=== PATIENT | female | born 1960 | race Caucasian/White ===

== ENCOUNTER 2020-09-10 17:39 | Outpatient (CLI) | payer OTHER, SELFPAY ==
--- NOTE | ~2020-09-10 | MM_ITS ---
EXAMINATION: MM screening [facility] BI w cesar HISTORY: Screening mammogram TECHNIQUE: Craniocaudal and mediolateral oblique 3-D tomosynthesis images were obtained and synthetic 2-D images were generated. CAD analysis was submitted and interpreted. COMPARISON: 06/16/2019, 04/25/2018, 09/18/2016 BREAST PARENCHYMAL COMPOSITION: There are scattered areas of fibroglandular density. FINDINGS: RIGHT BREAST: An asymmetry is present in the middle third of the upper breast 4.5 cm from the nipple on the mediolateral oblique view. LEFT BREAST: There is no evidence of suspicious mass, calcification, or architectural distortion to s uggest malignancy. There has been no significant interval change. IMPRESSION: 1. Right breast asymmetry on the mediolateral oblique view. 2. Additional mammographic views and possible breast ultrasound are recommended. BI-RADS Category 0: Incomplete: Needs additional imaging evaluation. Reviewed, dictated and finalized at location A. IMPRESSION: 1. Right breast asymmetry on the mediolateral oblique view. 2. Additional mammographic views and possible breast ultrasound are recommended . BI-RADS Category 0: Incomplete: Needs additional imaging evaluation.
== END 2020-09-10 17:40 | disposition home or self-care (01) ==
LOC: ANHIMG 17:42
PROVIDERS: PCP Family Medicine; Visit Provider Obstetrics & Gynecology
DX: Z12.31 Encounter for screening mammogram for malignant neoplasm of breast (principal); R92.8 Other abnormal and inconclusive findings on diagnostic imaging of breast
CPT/HCPCS: 77063; 77067

== ENCOUNTER 2020-10-04 11:53 | Outpatient (CLI) | payer OTHER, SELFPAY ==
--- NOTE | ~2020-10-04 | MM_ITS ---
EXAMINATION: MM diagnostic mammo unilat RT HISTORY: Right breast asymmetry on screening mammogram TECHNIQUE: Additional 3-D tomosynthesis images of the right breast were performed and synthetic 2-D i mages were generated. CAD analysis was submitted and interpreted. COMPARISON: 09/10/2020, 06/16/2019, 04/25/2018, 09/18/2016, 01/01/2015 FINDINGS: There is a return to baseline fibroglandular appearance in the right breast in the area que stioned on screening mammogram. No suspicious mass, calcification, or architectural distortion are id entified. IMPRESSION: 1. No mammographic evidence of malignancy. 2. Recommend routine screening mammography in one year. BI-RADS Category 1: Negative Reviewed, dictated and finalized at location A. BITS CURATOR
== END 2020-10-04 11:54 | disposition home or self-care (01) ==
PROVIDERS: PCP Family Medicine; Visit Provider Obstetrics & Gynecology
DX: R92.8 Other abnormal and inconclusive findings on diagnostic imaging of breast (principal)
CPT/HCPCS: 77065

== ENCOUNTER 2022-04-10 09:09 | Outpatient (CLI) | payer OTHER, SELFPAY ==
--- NOTE | ~2022-04-10 | MM_ITS ---
EXAMINATION: MM screening [facility] BI w cesar HISTORY: Screening mammogram TECHNIQUE: Craniocaudal and mediolateral oblique 3-D tomosynthesis images were obtained and synthetic 2-D images were generated. CAD analysis was submitted and interpreted. COMPARISON: 10/04/2020 diagnostic right mammogram 09/10/2020, 06/16/2019, 04/25/2018 bilateral screening mammogram examinations BREAST PARENCHYMAL COMPOSITION: There are scattered areas of fibroglandular density. FINDINGS: Possible architectural distortion in the upper outer left breast (MLO Tomosynthesis image 2 ). Diagnostic right mammogram and right breast ultrasound examination are recommended. Otherwise there is no evidence of suspicious mass, calcification, or architectural distortion to sugg est malignancy in either breast. There has been no other suspicious interval change. IMPRESSION: 1. Possible architectural distortion in upper outer right breast 2. Diagnostic right mammogram and right breast ultrasound examination are recommended. BI-RADS Category 0: Incomplete: Needs additional imaging evaluation. Reviewed, dictated and finalized at location A. IMPRESSION: 1. Possible architectural distortion in upper outer right breast 2. Diagnostic right mammogram and right breast ultrasound examination are recom mended. BI-RADS Category 0: Incomplete: Needs additional imaging evaluation.
== END 2022-04-10 09:10 | disposition home or self-care (01) ==
PROVIDERS: PCP Family Medicine; Visit Provider Obstetrics & Gynecology
DX: Z12.31 Encounter for screening mammogram for malignant neoplasm of breast (principal); R92.8 Other abnormal and inconclusive findings on diagnostic imaging of breast
CPT/HCPCS: 77063; 77067

== ENCOUNTER 2022-04-27 13:51 | Outpatient (CLI) | payer OTHER, SELFPAY ==
--- NOTE | ~2022-04-27 | MMUS_ITS ---
EXAMINATION: MM diagnostic [facility] RT w cesar, US breast RT limited HISTORY: Follow-up right breast asymmetry TECHNIQUE: Additional 3-D tomosynthesis images of the right breast were performed and synthetic 2-D i mages were generated. CAD analysis was submitted and interpreted. High resolution Limited right breas t ultrasound was performed. COMPARISON: Comparison to multiple prior studies sequentially, with oldest reviewed study dated 02/2016. BREAST PARENCHYMAL COMPOSITION: Breast composed of scattered areas of fibroglandular density FINDINGS: MAMMOGRAPHIC FINDINGS: No suspicious masses, calcifications or architectural distortion in the right breast to suggest tyesha mark. ULTRASOUND: Limited right breast ultrasound: Multiple heterogeneous echotexture without focal mass. IMPRESSION: 1. No evidence for malignancy in the right breast. 2. Routine yearly screening mammogram and regular clinical breast examination are recommended. BI-RADS Category 1: Negative Reviewed, dictated and finalized at location A. IMPRESSION: 1. No evidence for malignancy in the right breast. 2. Routine yearly screening mammogram and regular clinical breast examination a re recommended. BI-RADS Category 1: Negative
== END 2022-04-27 13:52 | disposition home or self-care (01) ==
PROVIDERS: PCP Family Medicine; Visit Provider Obstetrics & Gynecology
DX: R92.8 Other abnormal and inconclusive findings on diagnostic imaging of breast (principal)
CPT/HCPCS: 76642; 77061; 77065; G0279

== ENCOUNTER 2023-07-12 09:11 | Outpatient (CLI) | payer OTHER, SELFPAY ==
--- NOTE | ~2023-07-12 | MM_ITS ---
EXAMINATION: MM screening [facility] BI w cesar HISTORY: Screening mammogram TECHNIQUE: Craniocaudal and mediolateral oblique 3-D tomosynthesis images were obtained and synthetic 2-D images were generated. CAD analysis was submitted and interpreted. COMPARISON: 04/27/2022, 04/10/2022, 10/04/2020, 09/10/2020 BREAST PARENCHYMAL COMPOSITION: There are scattered areas of fibroglandular density. FINDINGS: No suspicious mass, calcification, or architectural distortion are identified in either holly ast to suggest malignancy. There has been no suspicious interval change. IMPRESSION: 1. No mammographic evidence of malignancy. 2. Recommend routine screening mammography in one year. BI-RADS Category 1: Negative Reviewed, dictated and finalized at location A.
== END 2023-07-12 09:12 | disposition home or self-care (01) ==
LOC: ANHIMG 09:13
PROVIDERS: PCP Family Medicine; Visit Provider Obstetrics & Gynecology
DX: Z12.31 Encounter for screening mammogram for malignant neoplasm of breast (principal)
CPT/HCPCS: 77063; 77067

== ENCOUNTER 2023-12-09 16:25 | Outpatient (CLI) | payer OTHER, SELFPAY ==
--- NOTE | ~2023-12-09 | XR_ITS ---
EXAMINATION: XR_[id number]_CR DATE: 12/09/2023 16:51 INDICATION: Knee pain. TECHNIQUE: 2 views of left knee were obtained. COMPARISON: None. FINDINGS: Bone alignment is normal. No fracture. There is mild tricompartmental osteoarthritis. No kn ee joint effusion. IMPRESSION: 1. Mild left knee osteoarthritis. Reviewed, dictated and finalized at location E. ING MACHINE OPERATOR
--- NOTE | ~2023-12-09 | XR_ITS ---
EXAMINATION: XR_[id number]_CR DATE: 12/09/2023 16:51 INDICATION: Right knee pain. TECHNIQUE: 2 views of right knee were obtained. COMPARISON: None. FINDINGS: Bone alignment is normal. No fracture. There is mild tricompartmental osteoarthritis. There is a small knee joint effusion. IMPRESSION: 1. Mild right knee osteoarthritis. 2. Small right knee joint effusion. Reviewed, dictated and finalized at location E. VIDEOGRAPHER
== END 2023-12-09 16:26 | disposition home or self-care (01) ==
LOC: ANHIMG 16:28
PROVIDERS: PCP Family Medicine; Visit Provider Physician Assistant
DX: M17.0 Bilateral primary osteoarthritis of knee (principal); M25.461 Effusion, right knee
CPT/HCPCS: 73560

== ENCOUNTER 2024-10-17 02:46 | Day surgery (SDC) | payer OTHER, SELFPAY ==
[2024-09-26 15:18] VITALS: BMI 34.2
[2024-10-17 08:49] VITALS: BP 133/70; PULSE 94; RESP 18; TEMP 36.1; O2SAT 98
[2024-10-17] MEDS: LACTATED RINGERS 1,000 ML 150 ML IV CONT (08:57)
--- NOTE | 2024-10-17 09:27 | P.PNAN_ITS ---
Anes - Initial Pre Proc Eval Procedure: Operation Date: 10/17/24 10:00 Proposed Procedures p Screening Colonoscopy - Blake Felix MD Date/Time: 10/17/24 09:27 Surgeon: Blake Felix MD Pre Op Diagnosis: Neoplasm screening Patient Data Age: 64 Gender: F Height: 1.7 m Weight: 96.4 kg Last Vital Signs Temp 36.1 C L 10/17/24 08:49 Pulse 94 10/17/24 08:49 Resp 18 10/17/24 08:49 BP 133/70 10/17/24 08:49 Pulse Ox 98 10/17/24 08:49 O2 Del Method Room Air 10/17/24 08:49 Allergies Allergy/AdvReac Type Severity Reaction Status Date / Time phenazopyridine Allergy Unknown Skin Verified 10/17/24 08:48 Reaction Home Medications Medication Instructions Recorded Confirmed Type calcium 600 mg (as 1 tablet PO DAILY 09/01/21 10/17/24 History carbonate)-vitamin D3 5 mcg (200 unit) tablet (Calcium 600 + D(3)) cholecalciferol (vitamin D3) 125 125 mcg PO WEEKLY 09/01/21 10/17/24 History mcg (5,000 unit) capsule glucosamine [id number] 2 tablet PO DAILY 09/01/21 10/17/24 History tanja 1,500 mg-400 unit-100 mg tablet (Osteo Bi-Flex (5-Loxin)) multivitamin (Daily Multi-Vitamin 1 tablet PO DAILY 09/01/21 10/17/24 History tablet) estradiol 0.01% (0.1 mg/gram) 1 appful vaginal DAILY 11/19/23 10/17/24 History vaginal cream krill 500 mg-omega 3 115 mg-dha 30 1 cap PO DAILY 11/19/23 10/17/24 History mg-epa 64 lh-lcxrlji-aoevi capsule (MegaRed [place]-3 Krill Oil) meloxicam 15 mg tablet 15 mg PO DAILY #90 tabs 09/11/24 10/17/24 Rx Patient hx anesthesia problems: none Family hx anesthesia problems: none Results Review: All pre-operative results and documents have been reviewed as part of the pre- operative evaluation. [facility] Past Medical History Medical History Sleep apnea Family History Family History Other Dementia Heart disease Hypertension Social History Social History Smoking status: Never smoker Second hand tobacco smoke exposure: No Alcohol intake: current Alcohol use details: RARELY Substance use: never Substance use type: does not use Do You Feel Safe in your Home?: Yes Lack of Transportation: No Lack of Food: Never True Current Housing: I Have Housing Concerned About Future Housing: No Difficulty Paying Gas/Electric Bills: No Difficulty Paying for Meds: No Currently Unemployed: No Education: Bachelor's Degree Difficulty w/ Childcare or Family Care: No Living arrangements: with family Occupation/Education: occupation 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 Informed Consent: The patient's anesthetic plan and its attendant risks and benefits were discussed with the patient/family/POA. Questions were solicited and answers p rovided to the satisfaction of the patient/family/POA.
--- NOTE | 2024-10-17 09:42 | PM.HPGS ---
History of Present Illness History of Present Illness Consent: Risks, benefits, and alternatives have been discussed and questions answered. Patient agrees to proceed with procedure. Chief complaint: Neoplasm screening Narrative: Ofelia Fish is a 64 year old female here for screening colonoscopy, last one 2012 Review of Systems Review of Systems: All systems reviewed & are unremarkable except as noted in HPI and below PMFSH Past Medical History Medical History (Updated 10/17/24 @ 09:46 by Blake Felix MD) Colon cancer screening Sleep apnea Family History Family History Other Dementia Heart disease Hypertension Social History Social History Smoking status: Never smoker Second hand tobacco smoke exposure: No Alcohol intake: current Alcohol use details: RARELY Substance use: never Substance use type: does not use Do You Feel Safe in your Home?: Yes Lack of Transportation: No Lack of Food: Never True Current Housing: I Have Housing Concerned About Future Housing: No Difficulty Paying Gas/Electric Bills: No Difficulty Paying for Meds: No Currently Unemployed: No Education: Bachelor's Degree Difficulty w/ Childcare or Family Care: No Living arrangements: with family Occupation/Education: occupation 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 Meds Home Medications and Allergies Home Medications Medication Instructions Recorded Confirmed Type calcium 600 mg (as 1 tablet PO DAILY 09/01/21 10/17/24 History carbonate)-vitamin D3 5 mcg (200 unit) tablet (Calcium 600 + D(3)) cholecalciferol (vitamin D3) 125 125 mcg PO WEEKLY 09/01/21 10/17/24 History mcg (5,000 unit) capsule glucosamine CKf-U6-Gpjnlfnzs 2 tablet PO DAILY 09/01/21 10/17/24 History tanja 1,500 mg-400 unit-100 mg tablet (Osteo Bi-Flex (5-Loxin)) multivitamin (Daily Multi-Vitamin 1 tablet PO DAILY 09/01/21 10/17/24 History tablet) estradiol 0.01% (0.1 mg/gram) 1 appful vaginal DAILY 11/19/23 10/17/24 History vaginal cream krill 500 mg-omega 3 115 mg-dha 30 1 cap PO DAILY 11/19/23 10/17/24 History mg-epa 64 ap-vbutnqj-jqutu capsule (MegaRed [place]-3 Krill Oil) meloxicam 15 mg tablet 15 mg PO DAILY #90 tabs 09/11/24 10/17/24 Rx Allergies Allergy/AdvReac Type Severity Reaction Status Date / Time phenazopyridine Allergy Unknown Skin Verified 10/17/24 08:48 Reaction Vital Signs Vital Signs - 24 hr 10/17/24 08:49 Temperature 97 F L Pulse Rate 94 Respiratory Rate 18 Blood Pressure 133/70 Pulse Oximetry 98 Oxygen Delivery Room Air Exam Const: General: comfortable and no acute distress HENMT: Face/Nose/Sinus: Normal nares present Eyes: General: appearance normal, both eyes and all related structures Neck: Neck: no JVD Resp: Auscultation: clear to auscultation bilaterally Cardio: Rate: regular rate Rhythm: regular rhythm GI: Inspection: non-distended GI Palp: Yes Soft to palpation Skin: General skin exam: normal color Neuro: General: gait normal Speech: normal speech Extrem: General: normal to inspection Psych: Mental Status: mental status grossly normal Assessment and Plan Assessment and plan (1) Colon cancer screening: Code(s): Z12.11 - Encounter for screening for malignant neoplasm of colon Status: Acute Assessment and Plan: colonoscopy
[2024-10-17 10:00] VITALS: BP 100/60; PULSE 77; RESP 20; O2SAT 98
[2024-10-17 10:10] VITALS: BP 124/78; PULSE 77; RESP 20; O2SAT 100
[2024-10-17 10:20] VITALS: BP 124/70; PULSE 75; RESP 19; O2SAT 98
== END 2024-10-17 10:27 | disposition home or self-care (01) ==
PROVIDERS: PCP Family Medicine; Visit Provider Internal Medicine Gastroenterology
PROC: 0DJD8ZZ Inspection of Lower Intestinal Tract, Via Natural or Artificial Opening Endoscopic (ICD-10-PCS; CPT 45378; principal; 2024-10-17 10:00)
DX: Z12.11 Encounter for screening for malignant neoplasm of colon (principal); K63.5 Polyp of colon; K64.8 Other hemorrhoids; K57.30 Diverticulosis of large intestine without perforation or abscess without bleeding; G47.30 Sleep apnea, unspecified; E66.9 Obesity, unspecified; Z68.33 Body mass index [BMI] 33.0-33.9, adult; Z82.49 Family history of ischemic heart disease and other diseases of the circulatory system
CPT/HCPCS: 45385; 88305; J2704; J7120

== ENCOUNTER 2024-11-10 09:58 | Outpatient (CLI) | payer OTHER, SELFPAY ==
--- NOTE | ~2024-11-10 | MM_ITS ---
EXAMINATION: MM screening [facility] BI w cesar HISTORY: Screening TECHNIQUE: Craniocaudal and mediolateral oblique 3-D tomosynthesis images were obtained and synthetic 2-D images were generated. CAD analysis was submitted and interpreted. COMPARISON: 07/12/2023 and dating back to 09/09/2020 BREAST PARENCHYMAL COMPOSITION: There are scattered areas of fibroglandular density. FINDINGS: Punctate calcifications detected bilaterally, stable and benign in appearance, dermal in or igin. Stable parenchymal pattern without suspicious microcalcifications, architectural distortion, discrete masses or significant asymmetry. IMPRESSION: 1. No mammographic evidence of malignancy. 2. Recommend routine screening mammography in one year. BI-RADS Category 2: Benign finding(s). Reviewed, dictated and finalized at location A. EE MAKER
== END 2024-11-10 09:59 | disposition home or self-care (01) ==
LOC: ANHIMG 09:59
PROVIDERS: PCP Family Medicine; Visit Provider Obstetrics & Gynecology
DX: Z12.31 Encounter for screening mammogram for malignant neoplasm of breast (principal)
CPT/HCPCS: 77063; 77067

== ENCOUNTER 2025-06-08 14:30 | Emergency (ER) | payer OTHER, SELFPAY ==
--- NOTE | ~2025-06-08 | CT_ITS ---
EXAMINATION: CT lumbar spine wo con DATE: 06/08/2025 18:59 INDICATION: Low back pain radiating down the left leg TECHNIQUE: Computed tomography (CT) of the lumbar spine was performed without intravenous contrast. A utomated exposure control and iterative reconstruction technique were employed. The dose-length produ ct was 1033.47 mGy-cm. COMPARISON: None FINDINGS: 8 degrees lumbar dextrocurvature. Sagittal alignment is normal. Vertebral body heights are normal. No fracture. Lucent hemangioma at L1 with typical internal vertical trabecular pattern. Severe disc hei ght loss with vacuum phenomena and degenerative endplate changes at L5-S1. Moderate disc height loss at T10-T11, T12-L1 and L3-L4. Mild disc height loss at L2-L3 and L4-L5. Respiratory motion and mild a telectasis at the bilateral lung bases. Small sliding-type hiatal hernia. Mild diverticulosis along t he visualized distal descending and proximal sigmoid colon without adjacent from trace stranding to s uggest diverticulitis. Paravertebral soft tissues are unremarkable. Minimal bilateral sacroiliac oste oarthritis. The following disc levels are specifically discussed: T10-T11: Small right paracentral disc protrusion. There is mild right and minimal left facet joint os teoarthritis. There is mild left neural foraminal stenosis. There is minimal central canal stenosis. T11-T12: Disc is bulging. There is moderate bilateral facet joint osteoarthritis. There is no neural foraminal stenosis. There is mild central canal stenosis. T12-L1: Disc is bulging. There is mild right and minimal left facet joint osteoarthritis. There is no neural foraminal stenosis. There is mild central canal stenosis. L1-L2: Disc is bulging. There is mild bilateral facet joint osteoarthritis. There is no neural forami nal stenosis. There is mild central canal stenosis. L2-L3: Disc is bulging. There is mild left and mild to moderate right facet joint osteoarthritis. The re is mild bilateral neural foraminal stenosis. There is mild central canal stenosis. L3-L4: Disc is bulging. There is mild left and mild to moderate right facet joint osteoarthritis. The re is mild right and mild to moderate left neural foraminal stenosis. There is mild central canal jill nosis. L4-L5: Disc is bulging. There is moderate right and mild to moderate left facet joint osteoarthritis. There is mild bilateral neural foraminal stenosis. There is mild central canal stenosis. L5-S1: Disc is bulging with small endplate osteophytes. There is moderate bilateral facet joint osteo arthritis. There is moderate left and mild to moderate right neural foraminal stenosis. There is mini mal central canal stenosis. IMPRESSION: 1. Severe lumbosacral and mild to moderate lumbar and lower thoracic spondylosis. Reviewed, dictated and finalized at location A. IMPRESSION: 1. Severe lumbosacral and mild to moderate lumbar and lower thoracic spondylosi s.
--- OUTSIDE RECORDS SUMMARY | 2025-06-08 14:32 | XMS_ITS | Clinical Summary ---
Author Organization [facility] Address [address] [place] [address] Care Team Providers Care Proposal Engineer Name Role Phone Nolan Cagle MD Primary Care Provider [phone] [facility],non-owned Affiliates and Associated Physician Practices is amultiple site organization consisting of ambulatory clinics and hospital sitesin [place], [place], [place] and [place]. This disclosure is being madepursuant to the Care Everywhere program and may not contain all information available regarding this patient. Last updated 18.[facility] Allergies Active Allergy Reactions Criticality Noted Date Comments Phenazopyridine Itching,Rash Medium 07/04/2014 Medications * Be aware that medications may not be up to date on this document. Alwaysverify current medications with the patient. 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 Actinic keratosis 07/04/2014 Immunizations Immunization Administration Dates Next Due INFLUENZA VACCINE 08/15/2018 Family History Medical History Relation Name Comments Cancer - Skin, Non Melanoma Mother Allergy (Severe) Neg Hx Eczema Neg Hx Psoriasis Neg Hx Rashes/Skin Problems Neg Hx Relation Name Status Comments Mother Social History Tobacco Use Types Packs/Day Years Used Date Smoking Tobacco: Never Smokeless Tobacco: Never Alcohol Use Standard Drinks/Week Comments No 0 (1 standard drink = 0.6 oz pur e alcohol) Comments Unknown Sex and Gender Information Value Date Recorded Sex Assigned at Not on file Legal 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 Gender Identity Not on file Sexual Orientation Not on file Plan of Treatment Health Maintenance Due Date Last Done Comments COLOGUARD (AGES 45-75) - COL ON CA SCREENING 1962 COLON MONITORING 1962 COLONOSCOPY - COLON CA SCREENING 1962 CT COLONOGRAPHY - COLON CA SCREENING 1962 Colorectal Cancer Screening 1962 FIT - COLON CA SCREENING 1962 FLEX SIG - COLON CA SCREENING 1962 LIPID TESTING 1962 MAMMOGRAM 1962 HIV SCREENING 1977 HEPATITIS C SCREENING 07/15/1980 DTAP/TDAP/TD VACCINES (1 - Tdap) 1981 PAP with HPV 1992 PNEUMOCOCCAL VACCINE 50+ (1 of 1 - PCV) 2012 ZOSTER VACCINE (1 of 2) 2012 COVID-19 VACCINE (2 - 2023-2 5 season) 2024 05/11/2022 DEPRESSION SCREENING 11/15/2024 INFLUENZA VACCINE (#1) 2025 08/15/2018 Respiratory Syncytial Virus (RSV) Vaccine Pt: or over 60 yrs (1 - 1-dose 75+ series) 2037 HEPATITIS B VACCINE Aged Out No longe r eligible based on patient's age to complete this topic HIB VACCINE Aged Out No longer eligi ble based on patient's age to complete this topic HPV VACCINE Aged Out No longer eligi ble based on patient's age to complete this topic MENINGOCOCCAL (Group B) VACC INE SHARED DECISION-MAKING Aged Out No longer eligibl e based on patient's age to complete this topic MENINGOCOCCAL GROUPS A/C/Y/W VACCINE Aged Out No longer eligible b ased on patient's age to complete this topic Insurance [facility] SELF PAY NO INSURANCE Member Subscriber Plan / Payer (Ef fective for All Dates) Name:Ofelia Roach Member ID:Not on file Relation to Subscriber:Not on file Name:OFELIA ROACH Subscriber ID:Not on file (Home) Address: [facility] [place] [address] Payer ID:Not on file Group ID:Not on file Type:Self Pay Address: [facility] Care Teams Proposal Engineer Relationship Specialty Start Date End Date Nolan Cagle MD [address] [place] [id number] PCP - General 12/24/08
--- OUTSIDE RECORDS SUMMARY | 2025-06-08 14:32 | XMS_ITS | Clinical Summary ---
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 Gender Identity Not on file Sexual Orientation Not on file Plan of Treatment Health Maintenance Due Date Last Done Comments Hepatitis C Virus (HCV) Screening 1962 TdaP Immunization 1962 Pap Smear 1983 Cervical Cancer Screening (CCS) 1992 HPV/Cotest 1992 Colonoscopy 2007 Colorectal Cancer Screening 2007 Cologuard 2012 Immunochemical Fecal Occult Blood 2012 Mammogram 2012 Pneumococcal Immunization (5 0+ years) (1 of 1 - PCV) 2012 Zoster Immunization (1 of 2) 2012 Influenza Immunization (#1) 2024 SARS-COV-2 Immunization ( season) 2024 08/22/2021, 11/23/2020, 11/02/2020 Respiratory Syncytial Virus (RSV) Immunization (Adult) (1 - 1-dose 75+ series) 2037 Hepatitis B Immunization Aged Out No longer eligible based on patient's age to complete this topic Meningococcal Immunization (ACWY) Aged Out No longer eligible b ased on patient's age to complete this topic Pneumococcal Immunization Combined Aged Out No longer eligible b ased on patient's age to complete this topic Rotavirus Immunization Aged Out No lo nger eligible based on patient's age to complete this topic
--- OUTSIDE RECORDS SUMMARY | 2025-06-08 14:32 | XMS_ITS | Clinical Summary ---
Author Organization [facility] Address [address] [place] [address] Care Team Providers Care Department [employer] Name Role Phone Unavailable Primary Care Provider Unavailabl e Social History Tobacco Use Types Packs/Day Years Used Date Smoking Tobacco: Never Assessed Comments Unknown Sex and Gender Information Value Date Recorded Sex Assigned at Not on file Legal Sex Female 8:24 PM CDT Gender Identity Not on file Sexual Orientation Not on file Plan of Treatment Health Maintenance Due Date Last Done Comments Cervical Cancer Screening Pa p Smear (Age 30 to 64) Every 3 Years 1962 Colorectal Cancer Screening Colonoscopy (10 Years) 1962 Annual Physical 1965 Hepatitis C 1980 DTaP, Tdap and Td Vaccines ( 1 - Tdap) 1981 Cervical Cancer Screening Pa p with HPV Testing (Age 30 to 64) Every 5 Years 1992 Cervical Cancer Screening with HPV 1992 Mammogram Screening 2002 Pneumococcal Vaccine: 50+ Ye ars (1 of 1 - PCV) 2012 Zoster Vaccines (1 of 2) 2012 COVID-19 Vaccine (2023-2 5 season) 2024 RSV Immunization or 60+ Years (1 - 1-dose 75+ series) 2037 Meningococcal B Vaccine Aged Out No l onger eligible based on patient's age to complete this topic Meningococcal Vaccine Aged Out No frandy wu eligible based on patient's age to complete this topic RSV Immunizations Under 20 Months Aged Out No longer eligible based on patient's age to complete this topic
[2025-06-08 15:10] VITALS: BP 139/78; PULSE 77; RESP 15; TEMP 36.8; O2SAT 97
[2025-06-08 16:31] VITALS: BP 125/72; PULSE 80; TEMP 36.9; O2SAT 98
[2025-06-08 18:05] VITALS: BP 152/86; PULSE 62; TEMP 36.9; O2SAT 98
--- OUTSIDE RECORDS SUMMARY | 2025-06-08 18:27 | XMS_ITS | Clinical Summary ---
Author Organization [facility] Address [address] [place] [address] Care Team Providers Care Automobile Brakes Bonder Name Role Phone Nolan Cagle MD Primary Care Provider [phone]- [phone] Source Comments [facility],non-owned Affiliates and Associated Physician Practices is amultiple site organization consisting of ambulatory clinics and hospital sitesin [place], [place], [place] and [place]. This disclosure is being madepursuant to the Care Everywhere program and may not contain all information available regarding this patient. 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 SELF PAY NO INSURANCE Member Subscriber Plan / Payer (Ef fective for All Dates) Name:Ofelia Roach Member ID:Not on file Relation to Subscriber:Not on file Name:OFELIA ROACH Subscriber ID:Not on file (Home) Address: [facility] [place] [address] Payer ID:Not on file Group ID:Not on file Type:Self Pay Address: [facility] Care Teams Automobile Brakes Bonder Relationship Specialty Start Date End Date Nolan Cagle MD [address] [place] [phone] PCP - General 12/24/08
--- OUTSIDE RECORDS SUMMARY | 2025-06-08 18:27 | XMS_ITS | Clinical Summary ---
Author Organization [facility] Address [address] [place] [address] Care Team Providers Care Durability Technician Name Role Phone Unavailable Primary Care Provider [...]
--- OUTSIDE RECORDS SUMMARY | 2025-06-08 18:27 | XMS_ITS | Clinical Summary ---
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
--- NOTE | 2025-06-08 18:33 | ED_ITS ---
HPI - Back Pain/Injury General Chief Complaint: Back Pain/Injury Stated Complaint: left leg pain Time Seen by Provider: 06/08/25 18:11 Source: patient Mode of arrival: ambulatory Limitations: no limitations History of Present Illness HPI Narrative: This is a 64 year old female that presents to the ER for left sided low back pain. Reports radiation down the leg. She has tried rest, ice, heat. She takes meloxicam daily arthritis. Reports worsening pain today which prompted her to be seen. No recent injuries or trauma. Denies saddle anesthesia, bowel/bladder incontinence. Related Data Home Medications ?Medication ?Instructions ?Recorded ?Confirmed ?Last Taken ?Type calcium 600 mg (as 1 tablet PO DAILY 09/01/21 02/23/25 10/15/24 History carbonate)-vitamin D3 5 mcg (200 unit) tablet (Calcium 600 + D(3)) cholecalciferol (vitamin D3) 125 125 mcg PO WEEKLY 09/01/21 02/23/25 10/15/24 History mcg (5,000 unit) capsule glucosamine [id number]-I7-[id number] 2 tablet PO DAILY 09/01/21 02/23/25 10/15/24 History tanja 1,500 mg-400 unit-100 mg tablet (Osteo Bi-Flex (5-Loxin)) multivitamin (Daily Multi-Vitamin 1 tablet PO DAILY 09/01/21 02/23/25 10/15/24 History tablet) estradiol 0.01% (0.1 mg/gram) 1 appful vaginal DAILY 11/19/23 02/23/25 10/15/24 History vaginal cream krill 500 mg-omega 3 115 mg-dha 30 1 cap PO DAILY 11/19/23 02/23/25 10/15/24 History mg-epa 64 hs-dnnqwqj-fmhsk capsule (MegaRed [place]-3 Krill Oil) Allergies Allergy/AdvReac Type Severity Reaction Status Date / Time phenazopyridine Allergy Unknown Skin Verified 06/08/25 14:31 Reaction Review of Systems Review of Systems: All systems reviewed & are unremarkable except as noted in HPI and below PMFSH Past Medical History Medical History Colon polyp, hyperplastic 2023 Colon cancer screening Sleep apnea Family History Family History Other Dementia Heart disease Hypertension Social History Social History Smoking status: Never smoker Second hand tobacco smoke exposure: No Alcohol intake: current Alcohol use details: RARELY Substance use: never Substance use type: does not use Do You Feel Safe in your Home?: Yes Lack of Transportation: No Lack of Food: Never True Current Housing: I Have Housing Concerned About Future Housing: No Difficulty Paying Gas/Electric Bills: No Difficulty Paying for Meds: No Currently Unemployed: No Education: Bachelor's Degree Difficulty w/ Childcare or Family Care: No Living arrangements: with family Occupation/Education: occupation Additional occupation/education comments: -[employer] care concerns: No Exam Narrative: GENERAL: Well-appearing, well-nourished, and in no acute distress. HEAD: Normocephalic, atraumatic. EYES: EOMI. CHEST: Clear to auscultation. No respiratory distress. No wheezes rales or rhonchi HEART: Regular rate and rhythm. No murmur heard. Normal peripheral pulses. ABDOMEN: Soft, nontender, nondistended, normal active bowel sounds. EXTREMITIES: Normal range of motion. No edema. Strength equal in bilateral lower extremities (5/5). Normal DP pulses SKIN: Warm, dry, no rash. NEURO: No focal deficits. Alert and oriented x3. PSYCH: Normal mood and affect Course Course Emergency Course: Patient updated on her workup and agrees with plan of care Vital Signs Vital signs: Vital Signs Temperature 98.3 F 06/08/25 15:10 Pulse Rate 77 06/08/25 15:10 Respiratory Rate 15 06/08/25 15:10 Blood Pressure 139/78 06/08/25 15:10 Pulse Oximetry 97 06/08/25 15:10 Oxygen Delivery Room Air 06/08/25 15:10 Temperature 97.9 F 06/08/25 22:41 Pulse Rate 83 06/08/25 22:41 Respiratory Rate 16 06/08/25 22:41 Blood Pressure 136/86 06/08/25 22:41 Pulse Oximetry 97 06/08/25 22:41 Oxygen Delivery Room Air 06/08/25 15:10 MDM - Back Pain/Injury MDM Narrative Medical decision making narrative: Patient presents emergency department for left lower back pain radiating down left leg. Patient is neurologically intact. Denies saddle anesthesia, bowel/bladder incontinence. No recent injuries or trauma. CT lumbar spine shows severe lumbosacral in [id number]-cxeszmts lumbar and lower thoracic spondylosis. Patient updated on her workup and agrees with plan of care. She is to follow up with primary provider. She was given warnings to return to the ER Differential Diagnosis Differential diagnosis: Likely lumbar radiculopathy, sciatica, strain of lumbar region and other (compression fracture) Imaging Data Radiologist's impression: ITS Impressions Lumbar Spine CT 06/08/25 20:33 IMPRESSION: 1. Severe lumbosacral and mild to moderate lumbar and lower thoracic spondylosis. Critical Care Time Critical Care Time Critical Care Time: No Discharge Plan Discharge Clinical Impression: Sciatica Qualifiers: Laterality: left Qualified Code(s): M54.32 - Sciatica, left side Patient Disposition: Home Condition: Stable Instructions: Sciatica (ED), Lower Back Exercises (ED) Additional Instructions: Return to the ER if you experience weakness, numbness, bowel/bladder incontinence, or any other symptoms that are concerning to you Rest, use ice/heat, take anti-inflammatories (Aleve, Ibuprofen, Naproxen, etc) or Tylenol as needed for pain as well as muscle relaxer (Flexeril) as needed for pain. Muscle relaxers can make you drowsy, do not drive if you take this. Take steroid taper as prescribed Follow up with your primary care doctor Patient Language: Portuguese Prescriptions: New cyclobenzaprine 10 mg tablet 10 mg PO TID PRN (Reason: muscle spasm) Qty: 14 0RF methylprednisolone 4 mg tablets,dose pack See Rx Instructions .ROUTE .COMPLEX Qty: 21 0RF Rx Instructions: orally per package directions lidocaine 5 % adhesive patch,medicated 1 patch topical DAILY Qty: 15 0RF Rx Instructions: leave on most painful area for up to 12 hrs No Action multivitamin [Daily Multi-Vitamin] Tablet 1 tablet PO DAILY [id number] serr [Osteo Bi-Flex (5-Loxin)] 1,500-400-100 mg-unit-mg tablet 2 tablet PO DAILY Rx Instructions: give after food/meal calcium carbonate-vitamin D3 [Calcium 600 + D(3)] 600 mg(1,500mg) -200 unit tablet 1 tablet PO DAILY cholecalciferol (vitamin D3) 125 mcg (5,000 unit) capsule 125 mcg PO WEEKLY Rx Instructions: WEDNESDAY estradiol 0.01 % (0.1 mg/gram) cream 1 appful vaginal DAILY jmfrz-rx-[id number]-iue-opj-mgqgnpj-ast [MegaRed [place]-3 Krill Oil] 555-230-52-64 mg capsule 1 cap PO DAILY meloxicam 15 mg tablet See Rx Instructions .ROUTE .COMPLEX Qty: 90 2RF Dose Instruction: TAKE 1 TABLET BY MOUTH EVERY DAY Rx Instructions: TAKE 1 TABLET BY MOUTH EVERY DAY Follow-up/Referrals: Nolan Cagle MD [Primary Care Provider] - Stand Alone Forms: Work/School Release IP
[2025-06-08] MEDS: ACETAMINOPHEN 500 MG TABLET 1000 MG PO (18:44)
[2025-06-08] MEDS: diazePAM INJ (*CRX) 10 MG/2 ML SYRINGE 5 MG IM (18:45)
[2025-06-08 22:41] VITALS: BP 136/86; PULSE 83; RESP 16; TEMP 36.6; O2SAT 97
[2025-06-08] MEDS: LIDOCAINE 5% PATCH 1 PATCH TRANSDERM (22:50)
[2025-06-08] MEDS: CYCLOBENZAPRINE HCL 10 MG TABLET PO (22:51)
== END 2025-06-08 22:57 | disposition home or self-care (01) ==
PROVIDERS: Emergency Provider Physician Assistant; PCP Family Medicine
DX: M54.42 Lumbago with sciatica, left side (principal); G47.30 Sleep apnea, unspecified; Z86.0102 Personal history of hyperplastic colon polyps; M47.816 Spondylosis without myelopathy or radiculopathy, lumbar region; M47.814 Spondylosis without myelopathy or radiculopathy, thoracic region; M47.897 Other spondylosis, lumbosacral region
CPT/HCPCS: 72131; 96372; 99283; 99284; A9270; J3360

== ENCOUNTER 2025-08-24 08:51 | Outpatient (CLI) | payer OTHER, SELFPAY ==
--- NOTE | ~2025-08-24 | US_ITS ---
EXAMINATION: US pelvic complete w TV, 08/24/2025 14:20 CDT HISTORY: Postmenopausal bleeding Comparison: None Technique: Lugo-scale and color Doppler images were obtained. Findings: Uterus: Uterus anteverted 5.2 x 2.5 x 3.9 cm. . Endometrium 2.5 mm. Right Ovary:Right ovary is not identified however there is a simple appearing cystic lesion measuring 2.2 x 2.3 x 2.1 cm. Left Ovary: Left ovary 2 x 2 0.4 x 1.8 cm, cystic focus 1.8 x 1.8 cm. Free Fluid: None Impression: 1. No etiology to explain postmenopausal bleeding. 2. Cystic ovarian lesions detailed above which may represent postmenopausal atrophic cysts however cystic ovarian neoplasm is not excluded. Follow-up is suggested to assess stability in 6 months. Clinically if there are risk factors for neoplasm contrast-enhanced MRI is suggested at this time Reviewed, dictated and finalized at location P. Impression: 1. No etiology to explain postmenopausal bleeding. 2. Cystic ovarian lesions detailed above which may represent postmenopausal atr ophic cysts however cystic ovarian neoplasm is not excluded. Follow-up is sugge sted to assess stability in 6 months. Clinically if there are risk factors for neoplasm contrast-enhanced MRI is suggested at this time
--- OUTSIDE RECORDS SUMMARY | 2025-08-24 09:16 | XMS_ITS | Clinical Summary ---
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 Gender Identity Not on file Sexual Orientation Not on file Plan of Treatment Health Maintenance Due Date Last Done Comments Hepatitis C Virus (HCV) Screening 1962 TdaP Immunization 1962 Pap Smear 1983 Cervical Cancer Screening (CCS) 1992 HPV/Cotest 1992 Cologuard 2007 Colonoscopy 2007 Colorectal Cancer Screening 2007 Immunochemical Fecal Occult Blood 2007 Pneumococcal Immunization (5 0+ years) (1 of 1 - PCV) 2012 Zoster Immunization (1 of 2) 2012 Influenza Immunization (#1) 2025 SARS-COV-2 Immunization ( season) 2025 08/22/2021, 11/23/2020, 11/02/2020 Respiratory Syncytial Virus (RSV) Immunization (Adult) (1 - 1-dose 75+ series) 2037 Hepatitis B Immunization Aged Out No longer eligible based on patient's age to complete this topic Human Papillomavirus (HPV) Immunization Aged Out No longer eligible b ased on patient's age to complete this topic Meningococcal Immunization (ACWY) Aged Out No longer eligible b ased on patient's age to complete this topic Rotavirus Immunization Aged Out No lo nger eligible based on patient's age to complete this topic
--- OUTSIDE RECORDS SUMMARY | 2025-08-24 09:16 | XMS_ITS | Clinical Summary ---
Author Organization [facility] Address [address] [place] [address] Care Team Providers Care Brass Plater Name Role Phone Nolan Cagle MD Primary Care Provider [phone] Source Comments [facility],non-owned Affiliates and Associated Physician Practices is amultiple site organization consisting of ambulatory clinics and hospital sitesin [place], [place], [place] and [place]. This disclosure is being madepursuant to the Care Everywhere program and may not contain all information available regarding this patient. 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 FIXER Gender Identity Not on file Sexual Orientation Not on file Plan of Treatment Upcoming Encounters Date Type Department Care Team (Late st Contact Info) Description 09/18/2025 10:30 AM REED FIXER Office Visit [facility] - Dermatology [address], [facility] [place] [facility] [place] [address] Edelmira Lassiter MD [address] [place] [address] Health Maintenance Due Date Last Done Comments [...] 2012 ZOSTER VACCINE (1 of 2) 2012 DEPRESSION SCREENING 11/15/2024 COVID-19 VACCINE (2 - 2024-2 6 season) 2025 05/11/2022 INFLUENZA VACCINE (#1) 2025 08/15/2018 Respiratory Syncytial [...] patient's age to complete this topic Insurance [facility] SELF PAY NO INSURANCE Member Subscriber Plan / Payer (Ef fective for All Dates) Name:Ofelia Roach Member ID:Not on file Relation to Subscriber:Not on file Name:OFELIA ROACH Subscriber ID:Not on file (Home) Address: [facility] [address] [place] [address] Payer ID:Not on file Group ID:Not on file Type:Self Pay Address: [facility] Care Teams Brass Plater Relationship Specialty Start Date End Date Nolan Cagle MD [address] [place] [id number] PCP - General 12/24/08
== END 2025-08-24 08:52 | disposition home or self-care (01) ==
PROVIDERS: PCP Family Medicine; Visit Provider Obstetrics & Gynecology
DX: N95.0 Postmenopausal bleeding (principal)
CPT/HCPCS: 76830; 76856

== ENCOUNTER 2025-11-12 10:15 | Outpatient (CLI) | payer OTHER, SELFPAY ==
--- NOTE | ~2025-11-12 | MM_ITS ---
EXAMINATION: MM screening jaclyn BI w cesar HISTORY: Screening. TECHNIQUE: Craniocaudal and mediolateral oblique 3-D tomosynthesis images were obtained and synthetic 2-D images were generated. CAD analysis was submitted and interpreted. COMPARISON: 2023, 2022, and 2021 BREAST PARENCHYMAL COMPOSITION: Not Dense: There are scattered areas of fibroglandular FINDINGS: No suspicious masses are seen. There are no suspicious calcifications. No unexplained architectural distortion is seen. There are no skin or nipple abnormalities identified. There is no adenopathy seen on the images submitted. IMPRESSION: No mammographic evidence to suggest malignancy is seen. The patient may return to screening mammography as per ACR guidelines. BI-RADS 1 - Negative. Reviewed, dictated and finalized at location A. [employer] PROGRAM MANAGER
--- OUTSIDE RECORDS SUMMARY | 2025-11-12 10:45 | XMS_ITS | Clinical Summary ---
Author Organization [facility] [employer] Address [address] [place] [address] Care Team Providers Care Costume Director Name Role Phone Nolan Cagle MD Primary Care Provider [phone]- [phone] Source Comments [facility],non-owned Affiliates and Associated Physician Practices is amultiple site organization consisting of ambulatory clinics and hospital sitesin [place], [place], [place] and [place]. This disclosure is being madepursuant to the Care Everywhere program and may not contain all information available regarding this patient. Last updated 18.[facility] [employer] Allergies Active Allergy Reactions Criticality Noted Date Comments Phenazopyridine Itching,Rash Medium 07/04/2014 Medications * Be aware that medications may not be up to date on this document. Alwaysverify current medications with the patient. PREMARIN 0.625 MG/GM vaginal cream 09/16/2018 Active terbinafine (LamISIL) 250 MG tablet Take 1 (one) tablet by mouth once daily Active estradiol (Estrace) 0.01 % vaginal cream Insert 0.5 g into the vagina Two times a week 09/06/2025 Active meloxicam (Mobic) 15 MG tablet Take 1 (one) tablet by mouth once daily 12/12/2024 Active multivitamin daily tablet Take 1 (one) tablet by mouth daily with food Active calcium carbonate (Caltrate) 600 MG tablet Take 1 (one) tablet by mouth daily with food Active Krill Oil 500 MG CAPS Take 500 mg by mouth once daily Active triamcinolone acetonide (Kenalog In Orabase) 0.1 % pasteIndication s:Hx of oral aphthous ulcers Apply to oral mucosa 2-3 times a day after meals and at bedtime. 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 - Dermatology [address] [place] [phone] Edelmira Lassiter MD 09/18/2025 10:30 AM CATTLE KNOCKER Office Visit [facility] - Dermatology [address] [place] [phone] Edelmira Lassiter MD Neoplasm of skin (Primary Dx); Hx of oral aphthous ulcers; Seborrheic keratosis, inflamed; Actinic keratosis; Solar lentiginosis; Melanocytic nevi of trunk; Other seborrheic keratosis 09/18/2025 Travel from Last 3 Months Immunizations Immunization Administration Dates Next Due INFLUENZA [...] on file Legal Sex Female 6:29 PM CATTLE KNOCKER Gender Identity Not on file Sexual Orientation Not on file Plan of Treatment Upcoming Encounters Date Type Department Care Team (Late st Contact Info) Description 11/27/2025 9:00 AM CATTLE KNOCKER Office Visit [facility] - Dermatology [address] [place] [phone] Edelmira Lassiter MD [address] [place] [phone] 02/19/2026 10:30 AM CDT Office Visit [facility] - Dermatology [address] [place] [phone] Edelmira Lassiter MD [address] [place] [phone] Health Maintenance Due Date Last Done Comments COLOGUARD (AGES 45-75) - COLON CA SCREENING 1962 COLON MONITORING 1962 COLONOSCOPY [...] 2) 2012 DEPRESSION SCREENING 11/15/2024 COVID-19 VACCINE ( - 2024- season) 2025 09/19/2022, 05/11/2022, 08/22/2021, Additional history exists Respiratory Syncytial Virus (RSV) Vaccine Pt: or over 60 yrs (1 - 1-dose 75+ series) 2037 INFLUENZA VACCINE Completed 08/22/2025, , 09/08/2023, Additional history exists HEPATITIS B VACCINE Aged Out No longe r eligible based on patient's age to complete this topic HIB VACCINE Aged Out No longer eligi ble based on patient's age to complete this topic HPV VACCINE Aged Out No longer eligi ble based on patient's age to complete this topic MENINGOCOCCAL (Group B) VACCINE SHARED DECISION-MAKING Aged Out No longer eligible based on patient's age to complete this topic MENINGOCOCCAL GROUPS A/C/Y/W VACCINE Aged Out No longer eligible based on patient's age to complete this topic Procedures Procedure Name Priority Date/Time Associated Diagnosis Comments ND DESTRUCTION MAL LESION TRUNK/ARM/LEG 0.6-1.0 CM Routine 09/25/2025 11:00 AM CATTLE KNOCKER Basal cell carcinoma of back ND DESTRUCTION PREMALIGNANT LESION 1ST Routine 09/25/2025 11:00 AM CATTLE KNOCKER Actinic keratosis ND TANGENTIAL BIOPSY SKIN SINGLE LESION Routine 09/18/2025 1:24 PM CATTLE KNOCKER Neoplasm of skin ND DESTRUCTION PREMALIGNANT LESION 1ST Routine 09/18/2025 1:23 PM CATTLE KNOCKER Actinic keratosis ND DESTRUCTION BENIGN LESIONS UP TO 14 Routine 09/18/2025 1:23 PM CATTLE KNOCKER Seborrheic keratosis, inflamed DERMATOPATHOLOGY Routine 09/18/2025 12:0 0 PM CATTLE KNOCKER Neoplasm of skin from Last 3 Months Results * ND DESTRUCTION MAL LESION TRUNK/ARM/LEG 0.6-1.0 CM (09/25/2025 11:00 AM CATTLE KNOCKER) Narrative Laina Isaac MD - 09/25/2025 11:00 AM CATTLE KNOCKER Laina Isaac MD 09/27/2025 3:50 PM PROCEDURE: Electrodessication and Curettage Patient was educated on purpose, risks/benefits and potential adverse effects, 100% chance of scar, statistics of cure, small chance of infection and recurrence. Informed consent obtained. A time out was performed immediatelyprior to the procedure: patient and provider/staff verbally confirmed correct patient, correct site, and correct procedure. ATTENDING PHYSICIAN: Laina Isaac MD SURGEON: Edelmira Lassiter MD DIAGNOSIS: BCC of right back SIZE OF LESION PRE-OP: 0.5 cm The surgical site was prepped with alcohol. Anesthesia: lidocaine with epinephrine locally injected. Curettage was performed with 4 mm curette over entire lesion in three different directional axis' Electrodessication was then performed to entire wound bed. SIZE AFTER FIRST PASS: 0.7 cm The above curettage and electrodessication technique was repeated twice more over the lesion. DRESSING: Plain Vaseline petroleum jelly and Band-Aid. Wound care instructions were given to the patient both orally and in writing. Patient tolerated the procedure well. Edelmira Lassiter MD PGY-4 Dermatology Resident us Laina Isaac MD PROCEDURE/MINOR SURGICAL O RDERABLES Final Result * ND DESTRUCTION PREMALIGNANT LESION 1ST (09/25/2025 11:00 AM CATTLE KNOCKER) Narrative Laina Isaac MD - 09/25/2025 11:00 AM CATTLE KNOCKER Laina Isaac MD 09/27/2025 3:50 PM Diagnosis and treatment options discussed. Liquid nitrogen was applied to 1 lesions (see office visit note for locations) for 6-10 seconds each for 1 cycle. Wound care reviewed. Edelmira Lassiter MD PGY-4 Dermatology Resident us Laina Isaac MD PROCEDURE/MINOR SURGICAL O RDERABLES Final Result * ND TANGENTIAL BIOPSY SKIN SINGLE LESION (09/18/2025 1:24 PM CATTLE KNOCKER) Narrative Kemal Varma MD - 09/18/2025 1:24 PM CATTLE KNOCKER Kemal Varma MD 09/18/2025 1:35 PM Risks, benefits and alternatives to shave biopsy were discussed with the patient. Verbal consent was obtained. Encounter Diagnoses Name Primary? Hx of oral aphthous ulcers Yes Neoplasm of skin Seborrheic keratosis, inflamed Actinic keratosis Solar lentiginosis Melanocytic nevi of trunk Other seborrheic keratosis Location: right back Skin prep: Alcohol Anesthesia: Lidocaine 1% with epinephrine Hemostasis: Aluminum chloride Dressing and wound care discussed. Specimen(s) placed in a patient labeled container and sent to [facility]. Patient agrees to phone call for results and message if not available. Edelmira Lassiter MD PGY-4 Dermatology Resident Kemal Varma MD PROCEDURE/MINOR SURGICAL ORDERA BLES Final Result * ND DESTRUCTION PREMALIGNANT LESION 1ST (09/18/2025 1:23 PM CATTLE KNOCKER) Narrative Kemal Varma MD - 09/18/2025 1:23 PM CATTLE KNOCKER Kemal Varma MD 09/18/2025 1:35 PM Diagnosis and treatment options discussed. Liquid nitrogen was applied to 1 lesions (see office visit note for locations) for 6-10 seconds each for 1 cycle. Wound care reviewed. Edelmira Lassiter MD PGY-4 Dermatology Resident Kemal Varma MD PROCEDURE/MINOR SURGICAL ORDERA BLES Final Result * ND DESTRUCTION BENIGN LESIONS UP TO 14 (09/18/2025 1:23 PM CATTLE KNOCKER) Narrative Kemal Varma MD - 09/18/2025 1:23 PM CATTLE KNOCKER Kemal Varma MD 09/18/2025 1:35 PM Diagnosis and treatment options discussed. Liquid nitrogen was applied to 1 lesions (see office visit note for locations) for 6-10 seconds each for 1 cycle. Wound care reviewed. Edelmira Lassiter MD PGY-4 Dermatology Resident Kemal Varma MD PROCEDURE/MINOR SURGICAL ORDERA BLES Final Result * DERMATOPATHOLOGY (Specimen Count = 1) (09/18/2025 12:00 PM CATTLE KNOCKER) Case Report Dermatopathology Report Case: [id number] Authorizing Provider: Kemal Varma MD Collected: 09/18/2025 12:00 PM Ordering Location: [facility] - Received: 09/18/2025 12:00 PM Dermatology Pathologist: Laina Isaac MD Specimen: Skin, right back 2:55 PM CATTLE KNOCKER DERMATOPATHOLOGY LABORATORY Final Diagnosis Specimen A. SKIN, right back: BASAL CELL CARCINOMA, NODULAR TYPE (C44.519) 2:55 PM CATTLE KNOCKER DERMATOPATHOLOGY LABORATORY at 1455 CATTLE KNOCKER Clinical History BCC 11/05/202 5 2:55 PM [facility] DERMATOPATHOLOGY LABORATORY Gross Description Specimen A: Received is one formalin filled container labeled with the patient's name and designated right back. The specimen consists of a shave biopsy measuring 5x4x1 mm. Jar 0. 2:55 PM [facility] DERMATOPATHOLOGY LABORATORY Microscopic Description Specimen A. SKIN, right back: Within the dermis there are aggregates of basaloid cells with a high nuclear to cytoplasmic ratio and peripheral palisading. 2:55 PM [facility] DERMATOPATHOLOGY LABORATORY Disclaimer An external and internal positive and negative controls are appropriate for the histochemical, immunohistochemical and immunofluorescence stain(s) in this case (if any), except where stated explicitly. The performance characteristics of the stain(s) cited in this report were developed and its performance characteristic determined by the Dermatopathology Laboratory at [facility], directed by Dr. Cathie Callahan. These tests need not be, and therefore are not, approved by the [place] Food and Drug Administration. The tests are used for clinical purposes. Billing Codes Specimen Charges Stain Charges 52591 1 2:55 PM [facility] DERMATOPATHOLOGY LABORATORY Embedded Images 2:55 PM [facility] DERMATOPATHOLOGY LABORATORY Pathology/Cytolo gy TISSUE SPECIMEN FROM SKIN / Unknown Collection / Unknown 09/18/2025 12:00 PM CATTLE KNOCKER 09/18/2025 12:00 PM [facility] Kemal Varma MD LAB - PATHOLOGY/CYTOLOGY ORDERA BLES Final Result DERMATOPATHOLOGY LABORATORY [facility] - Department of Dermatology [facility] [address] [place] [address], [address] [phone] from Last 3 Months Insurance [facility] SELF PAY NO INSURANCE Member Subscriber Plan / Payer (Ef fective for All Dates) Name:Ofelia Roach Member ID:Not on file Relation to Subscriber:Not on file Name:OFELIA ROACH Subscriber ID:Not on file (Home) Address: [facility] [place] [address] Payer ID:Not on file Group ID:Not on file Type:Self Pay Address: [facility] Care Teams Costume Director Relationship Specialty Start Date End Date Nolan Cagle MD [address] [place] [phone] PCP - General 12/24/08
--- OUTSIDE RECORDS SUMMARY | 2025-11-12 10:45 | XMS_ITS | Clinical Summary ---
Author Organization [facility] Care Team Providers Care Nurse Navigator Name Role Phone Unavailable Primary Care Provider Unavailabl e Immunizations Immunization Administration Dates Next Due Covid-19, Mrna, Lnp-s, Pf, 3 0 Mcg/0.3 Ml Dose ([employer]) 08/22/2021,11/23/2020,11/02/2020 Social History Tobacco Use Types Packs/Day Years Used Date Smoking Tobacco: Never Assessed Comments Unknown Sex and Gender Information Value Date Recorded Sex Assigned at Not on file Legal Sex Female 10:30 PM SENIOR C DEVELOPER Gender Identity Not on file Sexual Orientation [...]
--- OUTSIDE RECORDS SUMMARY | 2025-11-12 10:45 | XMS_ITS | Encounter Summary ---
Author Organization [facility] Address [address] [place] [address] Care Team Providers Care Supervisor Assembly Room Name Role Phone Nolan Cagle MD Primary Care Provider [phone]- [phone] Encounter Details Date Type Department Care Team (Late Contact Info) Description 09/19/2025 Results Follow-Up [facility] - Dermatology [address] [place] [phone] Edelmira Lassiter MD [address] [place] [phone] Social History Tobacco Use Types Packs/Day Years Used Date Smoking Tobacco: Never Smokeless Tobacco: Never Alcohol Use Standard Drinks/Week Comments No 0 (1 standard drink = 0.6 oz pur e alcohol) Comments Unknown Sex and Gender Information Value Date Recorded Sex Assigned at Not on file Legal Sex Female 6:29 PM JANITOR CLEANER Gender Identity Not on file Sexual Orientation Not on file documented as of this encounter Plan of Treatment Upcoming Encounters Date Type Department Care Team (Late Contact Info) Description 11/27/2025 9:00 AM JANITOR CLEANER Office Visit [facility] - Dermatology [address] [place] [phone] Edelmira Lassiter MD [address] [place] [phone] 02/19/2026 10:30 AM CDT Office Visit [facility] - Dermatology [address] [place] [phone] Edelmira Lassiter MD [address] [place] [address] documented as of this encounter Visit Diagnoses Not on filedocumented in this encounter Care Teams Supervisor Assembly Room Relationship Specialty Start Date End Date Nolan Cagle MD [address] [place] [phone] PCP - General 12/24/08 documented as of this encounter
--- OUTSIDE RECORDS SUMMARY | 2025-11-12 10:45 | XMS_ITS | Clinical Summary ---
Author Organization [facility] Address [address] [place] [phone] Care Team Providers Care Combining Machine Operator Name Role Phone Unavailable Primary Care Provider [...] Vaccines (1 of 2) 2012 COVID-19 Vaccine ( - 2024-2 6 season) 2025 Influenza Adult (#1) 2025 RSV Immunization or 60+ Years (1 - 1-dose 75+ series) 2037 Hepatitis A Vaccines Aged Out No long er eligible based on patient's age to complete this topic Meningococcal B Vaccine Aged Out No l onger eligible based on patient's age to complete this topic Meningococcal Vaccine Aged Out No frandy wu eligible based on patient's age to complete this topic RSV Immunizations Under 20 Months Aged Out No longer eligible based on patient's age to complete this topic
== END 2025-11-12 10:16 | disposition home or self-care (01) ==
LOC: ANHFOHIMG 10:17
PROVIDERS: PCP Family Medicine; Visit Provider Obstetrics & Gynecology
DX: Z12.31 Encounter for screening mammogram for malignant neoplasm of breast (principal)
CPT/HCPCS: 77063; 77067